=== PATIENT | female | born 1950 | race Caucasian/White ===

== ENCOUNTER 2018-05-09 10:33 | Outpatient (CLI) | payer MEDICARE, BC ==
[2014-01-19 13:16] VITALS: O2SAT 98
== END 2018-05-09 10:34 | disposition home or self-care (01) | DRG 554 ==
LOC: CONVCARE 10:33
PROVIDERS: ATTEND Orthopaedic Surgery
DX: M16.12 Unilateral primary osteoarthritis, left hip (principal)
CPT/HCPCS: 72170; 73502

== ENCOUNTER 2018-06-24 10:16 | Outpatient (CLI) | payer MEDICARE, BC ==
[2014-01-19 13:16] VITALS: O2SAT 98
== END 2018-06-24 10:17 | disposition home or self-care (01) | DRG 951 ==
LOC: CONVCARE 10:16
PROVIDERS: ATTEND Orthopaedic Surgery
DX: Z98.890 Other specified postprocedural states (principal)
CPT/HCPCS: 73502

== ENCOUNTER 2018-12-30 14:36 | Outpatient (CLI) | payer MEDICARE, BC ==
[2014-01-19 13:16] VITALS: O2SAT 98
== END 2018-12-30 14:37 | disposition home or self-care (01) | DRG 556 ==
LOC: CONVCARE 14:36
PROVIDERS: ATTEND Orthopaedic Surgery
DX: M25.552 Pain in left hip (principal); M25.562 Pain in left knee; Z96.642 Presence of left artificial hip joint; M22.42 Chondromalacia patellae, left knee
CPT/HCPCS: 73502; 73562